=== PATIENT | female | born 1970 | race Asian ===

== ENCOUNTER 2020-09-25 10:16 | Outpatient (CLI) | payer OTHER, SELFPAY ==
--- NOTE | ~2020-09-25 | XR_ITS ---
EXAMINATION: XR knee RT 3V DATE: 09/25/2020 10:44 INDICATION: Right knee pain. TECHNIQUE: 3 views of right knee on 4 radiographs were obtained. COMPARISON: None. FINDINGS: Bone alignment is normal. No fracture. There is mild tricompartmental osteoarthritis. No kn ee joint effusion. IMPRESSION: 1. Mild right knee osteoarthritis. Reviewed, dictated and finalized at location A. 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
== END 2020-09-25 10:17 | disposition home or self-care (01) ==
LOC: ANHIMG 10:19
PROVIDERS: PCP Family Medicine; Visit Provider Nurse Practitioner Family
DX: M17.11 Unilateral primary osteoarthritis, right knee (principal)
CPT/HCPCS: 73562

== ENCOUNTER 2020-11-24 15:03 | Outpatient (CLI) | payer OTHER, SELFPAY ==
--- NOTE | ~2020-11-24 | US_ITS ---
EXAMINATION: US venous doppler LE RT EXAM DATE: 11/24/2020 15:47 INDICATION: Right leg swelling. TECHNIQUE: Multiple grayscale, color flow and Doppler images of the right lower extremity deep venous system were obtained and reviewed. There is no prior study for comparison. FINDINGS: The right common femoral, femoral and profunda veins demonstrate normal color flow, respira tory variation, augmentation and compressibility. Compressibility, color flow confirmed within the r ight popliteal, posterior tibial, peroneal, and greater saphenous veins. IMPRESSION: 1. No right lower extremity deep venous thrombosis. Reviewed, dictated and finalized at location A. 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
== END 2020-11-24 15:04 | disposition home or self-care (01) ==
PROVIDERS: PCP Family Medicine; Visit Provider Nurse Practitioner Family
DX: M79.89 Other specified soft tissue disorders (principal); M79.604 Pain in right leg
CPT/HCPCS: 93971

== ENCOUNTER → 2021-06-22 15:41 | Outpatient (CLI) | payer OTHER, SELFPAY ==
--- NOTE | ~2021-06-22 | XR_ITS ---
XR thoracic spine 3V DATE: 06/22/2021 16:43 INDICATION: Back pain TECHNIQUE: AP, lateral, swimmer views COMPARISON: None FINDINGS: There is multilevel cervical degenerative disc disease is degenerative spurring of the thor acic spine. No fracture or dislocation or bone destruction. The thoracic pedicles are intact. No para spinal soft tissue thickening. IMPRESSION: Degenerative changes of the cervical and thoracic spine Reviewed, dictated and finalized at location A.
--- NOTE | ~2021-06-22 | XR_ITS ---
XR lumbar spine 2-3V DATE: 06/22/2021 16:43 INDICATION: Low back pain TECHNIQUE: Standing AP, lateral and coned lateral lumbosacral views COMPARISON: None FINDINGS: Diffuse osteopenia. There is diffuse idiopathic skeletal hyperostosis of the thoracic spine . There is moderate degenerative disc disease of the lumbar spine and moderately severe degenerative di sease at L5-S1. Bilateral prominent iliolumbar ligament ossification. No fracture or bone destruction of the lumbar spine. The included lower thoracic and lumbar pedicles are intact. No spondylolisthesis. The sacroiliac joints are intact. IMPRESSION: Osteopenia. Diffuse idiopathic skeletal hyperostosis of the thoracic spine Moderate degenerative disc disease of the lumbar interspaces and moderately severe degenerative disc disease at L5-S1 Prominent bilateral iliolumbar ligament ossification Reviewed, dictated and finalized at location A. IMPRESSION: Osteopenia. Diffuse idiopathic skeletal hyperostosis of the thoracic spine Moderate degenerative disc disease of the lumbar interspaces and moderately sev ere degenerative disc disease at L5-S1 Prominent bilateral iliolumbar ligament ossification
== END ==
PROVIDERS: PCP Family Medicine; Visit Provider Physician Assistant
DX: M85.88 Other specified disorders of bone density and structure, other site (principal); M51.36 Other intervertebral disc degeneration, lumbar region; M51.37 Other intervertebral disc degeneration, lumbosacral region
CPT/HCPCS: 72072; 72100

== ENCOUNTER → 2021-10-31 14:55 | Outpatient (CLI) | payer OTHER, SELFPAY ==
--- NOTE | ~2021-10-31 | MM_ITS ---
EXAMINATION: MM screening tae BI w radha HISTORY: Screening mammogram TECHNIQUE: Craniocaudal and mediolateral oblique 3-D tomosynthesis images were obtained and synthetic 2-D images were generated. CAD analysis was submitted and interpreted. COMPARISON: None, baseline BREAST PARENCHYMAL COMPOSITION: The breasts are heterogeneously dense, which may obscure small masses . FINDINGS: RIGHT BREAST: There is no evidence of suspicious mass, calcification, or architectural distortion to suggest malignancy. LEFT BREAST: There is a possible mass in the middle/posterior third of the slightly inner breast. IMPRESSION: 1. Possible left breast mass. 2. Additional mammographic views and possible breast ultrasound are recommended. BI-RADS Category 0: Incomplete: Needs additional imaging evaluation. Reviewed, dictated and finalized at location A. 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 Possible left breast mass. 2. Additional mammographic views and possible breast ultrasound are recommended . BI-RADS Category 0: Incomplete: Needs additional imaging evaluation.
== END ==
PROVIDERS: PCP Family Medicine; Visit Provider Family Medicine
DX: Z12.31 Encounter for screening mammogram for malignant neoplasm of breast (principal); R92.8 Other abnormal and inconclusive findings on diagnostic imaging of breast
CPT/HCPCS: 77063; 77067

== ENCOUNTER → 2021-11-14 07:30 | Outpatient (CLI) | payer OTHER, SELFPAY ==
--- NOTE | ~2021-11-14 | MMUS_ITS ---
EXAMINATION: MM diagnostic tae LT w radha, US breast LT limited HISTORY: Possible left breast mass on screening mammogram TECHNIQUE: Additional 3-D tomosynthesis images of the left breast were performed and synthetic 2-D im ages were generated. CAD analysis was submitted and interpreted. High resolution limited left breast ultrasound was performed. COMPARISON: 10/31/2021 FINDINGS: MAMMOGRAPHIC FINDINGS: No definite mass is identified with spot compression of the left breast. No suspicious calcification or architectural distortion are identified. ULTRASOUND: There is no evidence of focal abnormal solid or cystic mass in the vicinity of the mammographic findi ng in question. IMPRESSION: 1. No mammographic or sonographic evidence of malignancy. 2. Recommend routine screening mammography in one year. BI-RADS Category 1: Negative Reviewed, dictated and finalized at location A. 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 No mammographic or sonographic evidence of malignancy. 2. Recommend routine screening mammography in one year. BI-RADS Category 1: Negative
== END ==
PROVIDERS: PCP Family Medicine; Visit Provider Family Medicine
DX: R92.8 Other abnormal and inconclusive findings on diagnostic imaging of breast (principal)
CPT/HCPCS: 76642; 77061; 77065; G0279

== ENCOUNTER 2022-04-22 16:42 | Outpatient (CLI) | payer OTHER, SELFPAY ==
--- NOTE | ~2022-04-22 | CT_ITS ---
EXAMINATION: CT abdomen pelvis wo con DATE: 04/22/2022 17:10 INDICATION: severe left flank pain, hematuria TECHNIQUE: Computed tomography (CT) of the abdomen and pelvis was performed without intravenous contr ast. Automated exposure control and iterative reconstruction technique were employed. The dose-length product was 1367.06 mGy-cm. COMPARISON: None. FINDINGS: Lower thorax: Unremarkable Liver: Fatty infiltration. Biliary/Gallbladder: Cholelithiasis. No bile duct dilation. Pancreas: No mass or duct dilation. Spleen: Normal. Adrenals:No mass. Kidneys: No mass, stone, or hydronephrosis. GI tract: No small or large bowel dilation. Normal appendix. Diverticulosis without diverticulitis. Mesentery/Peritoneum: No ascites, mass, or free air. Retroperitoneum: No mass. Pelvis: Pelvic organs are within normal limits. Soft Tissues: Soft tissues and body wall unremarkable. Bones: No acute osseous finding. IMPRESSION: No acute abdominopelvic process. No CT finding that would explain left flank pain or hematuria. Steat osis and hepatomegaly. Cholelithiasis. Reviewed, dictated and finalized at location K. IMPRESSION: No acute abdominopelvic process. No CT finding that would explain left flank pa in or hematuria. Steatosis and hepatomegaly. Cholelithiasis.
== END 2022-04-22 16:43 | disposition home or self-care (01) ==
PROVIDERS: PCP Family Medicine; Visit Provider Nurse Practitioner Family
DX: R10.9 Unspecified abdominal pain (principal); R31.9 Hematuria, unspecified; K80.20 Calculus of gallbladder without cholecystitis without obstruction
CPT/HCPCS: 74176

== ENCOUNTER 2025-08-18 16:21 | Outpatient (CLI) | payer OTHER, SELFPAY ==
--- NOTE | ~2025-08-18 | XR_ITS ---
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 Findings: No acute fracture or malalignment. Moderate to severe tricompartmental degenerative changes, small effusion Soft tissues unremarkable. Impression: No acute fracture or malalignment. Reviewed, dictated and finalized at location P. ATE PARALEGAL Impression: No acute fracture or malalignment.
--- NOTE | ~2025-08-18 | XR_ITS ---
XR knee RT min 4V INDICATION: pain COMPARISON: None FINDINGS: 4 views of the right knee demonstrate no acute fracture or dislocation. Moderate degenerative changes within the medial tibiofemoral compartment with joint space narrowing and marginal osteophytes. Enthesophyte is noted at the quadriceps tendon attachment. IMPRESSION: No acute fracture or dislocation. Moderate osteoarthritic changes in the medial tibiofemoral compartment. Reviewed, dictated and finalized at location S. 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
== END 2025-08-18 16:22 | disposition home or self-care (01) ==
LOC: MICIMG 16:22
PROVIDERS: PCP Family Medicine; Visit Provider Physician Assistant
DX: M17.11 Unilateral primary osteoarthritis, right knee (principal); M25.562 Pain in left knee; M25.369 Other instability, unspecified knee
CPT/HCPCS: 73564

== ENCOUNTER 2025-09-07 16:06 | Outpatient (CLI) | payer OTHER, SELFPAY ==
--- NOTE | ~2025-09-07 | XR_ITS ---
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 Findings: No acute fracture or malalignment. Severe tricompartmental degenerative changes, small effusion Soft tissues unremarkable. Impression: No acute fracture or malalignment. Reviewed, dictated and finalized at location P. ET DEVELOPER Impression: No acute fracture or malalignment.
== END 2025-09-07 16:07 | disposition home or self-care (01) ==
LOC: MICIMG 16:07
PROVIDERS: PCP Family Medicine; Visit Provider Physician Assistant Medical
DX: S89.91XA Unspecified injury of right lower leg, initial encounter (principal); X58.XXXA Exposure to other specified factors, initial encounter; W19.XXXA Unspecified fall, initial encounter
CPT/HCPCS: 73562